=== PATIENT | female | born 1955 | race Two or more races ===

== ENCOUNTER 2021-05-28 06:00 | Day surgery (SDC) | payer OTHER ==
[~2021-05-28 06:00] MED LIST: ASA81 MG; CANDESARTAN CIL32 MG PO; GRALISE600 MG PO; HYDROCHLOROTHIA25 MG PO; HYZAAR 100-251 UDTAB; JANUMET XR 50-1 EAC1; LIPITOR40 MG; LIPITOR40 MG PO; METFORMIN HCL500 MG; MOTRIN600 MG PO; NORVASC5 MG PO; PROTONIX20 MG PO; TENORMIN25 MG; TOPROL XL50 M1 PO; ZETIA10 MG PO
== END 2021-05-28 12:15 | disposition home or self-care (01) ==
LOC: CIR.AMB 06:00
PROVIDERS: ATTEND Obstetrics & Gynecology
DX: N84.0 Polyp of corpus uteri (principal); Z20.822 Contact with and (suspected) exposure to COVID-19

== ENCOUNTER 2022-01-08 10:08 | Outpatient (CLI) | payer OTHER | END 2022-01-08 10:15 | disposition home or self-care (01) | LOC: MRI 10:08 | DX: M54.6 Pain in thoracic spine (principal); S22.080D Wedge compression fracture of T11-T12 vertebra, subsequent encounter for fracture with routine healing; S22.030A Wedge compression fracture of third thoracic vertebra, initial encounter for closed fracture ==

== ENCOUNTER 2022-12-30 10:59 | Outpatient (CLI) | payer OTHER | END 2022-12-30 11:02 | disposition home health service (06) | LOC: SONOGRAMA 10:59 | PROVIDERS: ATTEND Pathology Anatomic Pathology & Clinical Pathology | DX: D34 Benign neoplasm of thyroid gland (principal); E04.9 Nontoxic goiter, unspecified ==

== ENCOUNTER 2025-02-16 10:20 | Outpatient (CLI) | payer OTHER ==
[~2025-02-16 10:20] MED LIST changes: +METFORMIN HCL500 M3 PO; +[UNRECOGNIZED DRUG - OTHER] PO
== END 2025-02-16 10:22 | disposition home or self-care (01) ==
LOC: MAMO-SONO 10:20
PROVIDERS: ATTEND Internal Medicine
DX: N63.0 Unspecified lump in unspecified breast (principal); N63.11 Unspecified lump in the right breast, upper outer quadrant; N63.42 Unspecified lump in left breast, subareolar; Z12.31 Encounter for screening mammogram for malignant neoplasm of breast

== ENCOUNTER 2025-04-29 10:53 | Outpatient (CLI) | payer OTHER | END 2025-04-29 10:55 | disposition home or self-care (01) | LOC: SONOGRAMA 10:53 | PROVIDERS: ATTEND Obstetrics & Gynecology | DX: R10.20 Pelvic and perineal pain unspecified side (principal) ==